=== PATIENT | male | born 1970 | race Caucasian/White ===

== ENCOUNTER 2021-02-24 17:23 | Emergency (ER) | payer MEDICAID ==
[~2021-02-24] VITALS: Ht 175.3 cm; Wt 97.0 kg
--- NOTE | 2021-02-24 17:44 | NUR ---
PATIENT WALKED BACK FROM TRIAGE WITH CHIEF C/O "HIGH BLOOD PRESSURE." PATIENT STATES HE FELT LIKE "WATER WAS RUNNING DOWN MY LEG AT WORK." PATIENT DENIES HISTORY OF HTN, DENIES SOB, CHEST PAIN. REPORTS NUMBNESS/TINGLING RIGHT LEG ALL THE WAY DOWN. PATIENT ALSO STATES HE HAS MULTIPLE BOILS THAT "KEEP COMING BACK AFTER I GOT BIT BY SPIDER." CONNECTED TO MONITOR, VSS, CLAUDETTEN, SPOUSE AT BEDSIDE, CALL LIGHT WITHIN REACH.
[2021-02-24 18:14] LABS: BASOPHILS % (AUTO) 1 % (0-1); EOSINOPHILS % (AUTO) 3 % (1-7); LYMPHOCYTES % (AUTO) 18 % (22-44); MEAN CORPUSCULAR HEMOGLOBIN 30.1 pg (27.5-34.5); MEAN CORPUSCULAR HGB CONC 34.4 g/dL (33.2-36.2); MEAN PLATELET VOLUME 6.8 fL (7.4-10.4); MONOCYTES % (AUTO) 8 % (2-9); NEUTROPHILS % (AUTO) 71 % (42-75); PLATELET COUNT 344 x10^3/uL (130-400); RED CELL DISTRIBUTION WIDTH 13.7 % (9.4-14.8)
[2021-02-24 18:23] LABS: ALANINE AMINOTRANSFERASE 44 U/L (12-78); ALBUMIN 3.3 g/dL (3.4-5.0); ANION GAP 4 mmol/L (5-15); CALCIUM 8.6 mg/dL (8.5-10.1); CHLORIDE 106 mmol/L (98-107); CREATININE 0.87 mg/dL (0.7-1.3)
--- NOTE | 2021-02-24 18:23 | NUR ---
PATIENT AMBULATED TO BATHROOM AND BACK TO [facility] WITH STEADY GAIT.
[2021-02-24 18:26] LABS: ALKALINE PHOSPHATASE 104 U/L (45-117); BILIRUBIN,TOTAL 0.3 mg/dL (0.2-1.0); TOTAL PROTEIN 7.3 g/dL (6.4-8.2)
--- NOTE | 2021-02-24 18:45 | NUR ---
REPORT RECEIVED FROM ALANA TESFAYE
--- NOTE | 2021-02-24 18:45 | NUR ---
REPORT TO MERA VIZCARRA FOR TRANSFER OF PATIENT CARE.
[2021-02-24 18:52] VITALS: BP 153/81
--- NOTE | 2021-02-24 19:06 | NUR ---
Patient given discharge instructions and they have confirmed that they understand the instructions. Patient ambulatory with steady gait. NAD, all questions answered appropriately, denies additional needs at this time. No personal belongings left in room after discharge.
== END 2021-02-24 19:10 | disposition home or self-care (01) ==
LOC: ED 19:01
DX: I10 Essential (primary) hypertension (principal); F17.200 Nicotine dependence, unspecified, uncomplicated
CPT/HCPCS: 36415; 71045; 80053; 85025; 93005; 99285

== ENCOUNTER 2021-02-25 17:27 | Inpatient (IN) | payer MEDICAID ==
[~2021-02-25] VITALS: Ht 175.3 cm; Wt 93.1 kg
[~2021-02-25 17:27] MED LIST: ETOMIDATE 20 MG/10 ML ONE; MIDAZOLAM 1 MG/ML, 5ML ONE; PROPOFOL 10 MG/ML, 100ML IV ONE; PROPOFOL 10 MG/ML, 20ML ONE; SUCCINYLCHOLINE 20 MG/ML, 10ML ONE; VECURONIUM 10 MG ONE
[2021-02-25] MEDS ORDERED: FAMOTIDINE 20 MG TABLET ONE (18:20)
[2021-02-25] MEDS ORDERED: FAMOTIDINE 20 MG TABLET PO ONE (18:30)
--- NOTE | 2021-02-25 18:50 | NUR ---
REPORT TO MERA MADRIGAL.
--- NOTE | 2021-02-25 18:54 | NUR ---
report from ora assumed care of pt at this time
--- NOTE | 2021-02-25 19:29 | NUR ---
PT FACIAL SWELLING NOTED TO BE INCREASING AT A FASTER RATE MOVED TO T 1 FOR POSSIBLE INTUBATION
--- NOTE | 2021-02-25 19:33 | NUR ---
report to julieth
[2021-02-25 19:46] LABS: BASOPHILS % (AUTO) 1 % (0-1); EOSINOPHILS % (AUTO) 3 % (1-7); LYMPHOCYTES % (AUTO) 15 % (22-44); MEAN PLATELET VOLUME 6.9 fL (7.4-10.4); MONOCYTES % (AUTO) 6 % (2-9); NEUTROPHILS % (AUTO) 76 % (42-75); PLATELET COUNT 340 x10^3/uL (130-400)
[2021-02-25 20:01] LABS: ALBUMIN 3.3 g/dL (3.4-5.0); ANION GAP 4 mmol/L (5-15); CALCIUM 8.3 mg/dL (8.5-10.1); CHLORIDE 107 mmol/L (98-107); CREATININE 0.66 mg/dL (0.7-1.3)
--- NOTE | 2021-02-25 20:05 | NUR ---
CONSENT SIGNED BY 2 RN FOR EMERGENT BLOOD INFUSION. FFP VERIFIED BY THIS RN AND EMPERATRIZ Grnat RN.
--- NOTE | 2021-02-25 20:17 | NUR ---
LATE ENTRY: PT MOVED TO TR01 FOR CLOSER OBSERVATION. PT INTUBATED @ 1945. 8.0 ET TUBE, 26 CM AT LIP. PT WAS GIVEN 20MG ETOMIDATE, 100MG PROPOFOL, 100MG SUCC.
[2021-02-25] MEDS ORDERED: GLUCAGON 1 MG IM PRN (20:30)
[2021-02-25] MEDS ORDERED: DEXTROSE 50%, 50ML SYRINGE IVPush PRN (20:30)
[2021-02-25] MEDS ORDERED: SODIUM CHLORIDE 0.9% 1,000 ML IV ONE (20:30)
[2021-02-25] MEDS ORDERED: PHARMACY MAY ADJ FOR RENAL FX MC SCH (20:30)
[2021-02-25] MEDS ORDERED: DEXTROSE 4 GM TAB.CHEW PO PRN (20:30)
--- NOTE | 2021-02-25 21:25 | NUR ---
CHAD HARDING (GIRLFRIEND) [phone]
[2021-02-25] MEDS ORDERED: LABETALOL 5MG/ML, 20ML IVPush PRN (21:30)
[2021-02-25] MEDS ORDERED: DIPHENHYDRAMINE 50 MG/ML, 1ML IVPush PRN (21:30)
[2021-02-25] MEDS ORDERED: FENTANYL PF 100 MCG/2ML ONE (21:33)
[2021-02-25] MEDS ORDERED: PROPOFOL 100 ML IV ONE (21:34)
[2021-02-25 21:48] VITALS: BP 124/76
[2021-02-25 22:05] LABS: HCT (SEDRATE) 42.8 % (39.2-51.8)
[2021-02-25 22:13] LABS: ALBUMIN 3.2 g/dL (3.4-5.0); BILIRUBIN, DIRECT 0.1 mg/dL (0.1-0.2); C-REACTIVE PROTEIN, QUANT 0.39 mg/dL (0.02-0.49)
[2021-02-25 22:15] LABS: BILIRUBIN,INDIRECT 0.4 mg/dL (0.0-2.0); BILIRUBIN,TOTAL 0.5 mg/dL (0.2-1.0)
[2021-02-25] MEDS: SODIUM CHLORIDE FLUSH 10ML SYR IVF SCH (22:39)
[2021-02-25] MEDS: methylPREDNISolone SOD SUCC 125 MG/2 ML IVPush SCH (23:12)
[2021-02-25 23:43] LABS: AMPHETAMINE SCREEN, URINE Negative (Negative); BARBITURATE SCREEN, URINE Negative (Negative); BENZODIAZEPINE SCREEN, URINE Negative (Negative); CANNABINOID SCREEN, URINE Positive (Negative); COCAINE SCREEN, URINE Negative (Negative)
[2021-02-25 23:44] LABS: METHADONE SCREEN, URINE Negative (Negative); OPIATE SCREEN, URINE Negative (Negative)
[2021-02-26] MEDS: PROPOFOL 100 ML IV PRN ×7 (01:05→23:57)
[2021-02-26] MEDS: FENTANYL PF 1,000 MCG in SODIUM CHLORIDE 0.9% 80 ML IV PRN ×3 (03:57→23:13)
[2021-02-26 04:57] LABS: BASOPHILS % (AUTO) 0 % (0-1); EOSINOPHILS % (AUTO) 0 % (1-7); LYMPHOCYTES % (AUTO) 4 % (22-44); MEAN CORPUSCULAR HEMOGLOBIN 29.6 pg (27.5-34.5); MEAN CORPUSCULAR HGB CONC 33.7 g/dL (33.2-36.2); MEAN PLATELET VOLUME 6.8 fL (7.4-10.4); MONOCYTES % (AUTO) 1 % (2-9); NEUTROPHILS % (AUTO) 95 % (42-75); PLATELET COUNT 332 x10^3/uL (130-400); RED BLOOD COUNT 5.25 x10^6/uL (4.38-5.82)
[2021-02-26] MEDS: LIDOCAINE-MPF 1%, 2ML ENDO PRN ×2 (05:05→18:47)
[2021-02-26 05:06] LABS: ANION GAP 5 mmol/L (5-15); CALCIUM 8.2 mg/dL (8.5-10.1); CHLORIDE 107 mmol/L (98-107)
[2021-02-26 05:09] LABS: CREATININE 0.57 mg/dL (0.7-1.3)
[2021-02-26] MEDS: methylPREDNISolone SOD SUCC 125 MG/2 ML IVPush SCH ×4 (05:29→23:13)
[2021-02-26] MEDS: ENOXAPARIN 40 MG/0.4 ML SQ SCH (05:30)
[2021-02-26] MEDS: FAMOTIDINE 20 MG/2 ML IVPush SCH ×2 (09:17→21:31)
[2021-02-26] MEDS: SODIUM CHLORIDE FLUSH 10ML SYR IVF SCH ×2 (09:18→21:31)
[2021-02-26 09:24] LABS: MICROSCOPIC NOT IND
[2021-02-26] MEDS ORDERED: THIAMINE 200 MG in SODIUM CHLORIDE 0.9% 50 ML IV ONE (11:30)
--- NOTE | 2021-02-26 12:55 | NUR ---
Promote TF: 60 ml/hr ON propofol, 70 ml/hr OFF propofol Addendum: 02/26/21 at [address] Amended: Links added.
[2021-02-26] MEDS: NICOTINE 14MG/24 HR PATCH.TD24 TD SCH (13:22)
[2021-02-27] MEDS: PROPOFOL 100 ML IV PRN ×6 (02:56→21:56)
[2021-02-27] MEDS: ACETAMINOPHEN 500 MG TABLET PO SCH ×5 (04:34→19:39)
[2021-02-27 04:39] LABS: MEAN CORPUSCULAR HEMOGLOBIN 29.6 pg (27.5-34.5); MEAN CORPUSCULAR HGB CONC 33.8 g/dL (33.2-36.2); MEAN PLATELET VOLUME 7.1 fL (7.4-10.4); PLATELET COUNT 352 x10^3/uL (130-400); RED BLOOD COUNT 4.88 x10^6/uL (4.38-5.82); RED CELL DISTRIBUTION WIDTH 13.8 % (9.4-14.8)
[2021-02-27 04:47] LABS: ANION GAP 5 mmol/L (5-15); CALCIUM 8.2 mg/dL (8.5-10.1); CHLORIDE 105 mmol/L (98-107)
[2021-02-27 04:48] LABS: CREATININE 0.89 mg/dL (0.7-1.3)
[2021-02-27] MEDS: ENOXAPARIN 40 MG/0.4 ML SQ SCH (05:25)
[2021-02-27] MEDS: methylPREDNISolone SOD SUCC 125 MG/2 ML IVPush SCH ×4 (05:25→23:04)
[2021-02-27 05:46] LABS: BAND#(MANUAL) 0.49 x10^3/uL; BANDS%(MANUAL) 2 % (0-7); LYMPH#(MANUAL) 0.49 x10^3/uL (1-3.4); LYMPHS% (MANUAL) 2 % (22-44); MONOS#(MANUAL) 0.49 x10^3/uL (0.3-2.7); MONOS% (MANUAL) 2 % (2-9); SEG#(MANUAL) 23.22 x10^3/uL (1.8-6.8); SEGS% (MANUAL) 94 % (42-75)
[2021-02-27 05:47] LABS: <RBC MORPHOLOGY> NORMAL
[2021-02-27 05:48] LABS: <PLATELET ESTIMATE> ADEQUATE; <PLT MORPHOLOGY> NORMAL PLT MORPH
[2021-02-27] MEDS: FENTANYL PF 1,000 MCG in SODIUM CHLORIDE 0.9% 80 ML IV PRN ×3 (07:45→22:18)
[2021-02-27] MEDS: SODIUM CHLORIDE FLUSH 10ML SYR IVF SCH ×2 (08:31→19:40)
[2021-02-27] MEDS: FAMOTIDINE 20 MG/2 ML IVPush SCH ×2 (08:31→19:39)
[2021-02-27] MEDS: NICOTINE 14MG/24 HR PATCH.TD24 TD SCH (08:54)
[2021-02-27 10:43] LABS: ALANINE AMINOTRANSFERASE 29 U/L (12-78)
[2021-02-27 10:45] LABS: ALKALINE PHOSPHATASE 85 U/L (45-117); BILIRUBIN, DIRECT < 0.1 mg/dL (0.1-0.2); BILIRUBIN,TOTAL 0.3 mg/dL (0.2-1.0); TOTAL PROTEIN 6.8 g/dL (6.4-8.2)
[2021-02-27] MEDS: LACTATED RINGERS 1,000 ML IV SCH ×2 (11:17→23:05)
[2021-02-27 11:23] LABS: BILIRUBIN,INDIRECT < 0.2 mg/dL (0.0-2.0)
[2021-02-27] MEDS: MEROPENEM 1 GM in SODIUM CHLORIDE 0.9% 100 ML IV SCH (18:05)
[2021-02-28] MEDS: ACETAMINOPHEN 500 MG TABLET PO SCH ×2 (00:27→04:14)
[2021-02-28] MEDS: MEROPENEM 1 GM in SODIUM CHLORIDE 0.9% 100 ML IV SCH ×2 (00:28→09:14)
[2021-02-28] MEDS: FENTANYL PF 1,000 MCG in SODIUM CHLORIDE 0.9% 80 ML IV PRN (04:16)
[2021-02-28] MEDS: methylPREDNISolone SOD SUCC 125 MG/2 ML IVPush SCH ×4 (04:16→23:00)
[2021-02-28 04:42] LABS: BASOPHILS % (AUTO) 0 % (0-1); EOSINOPHILS % (AUTO) 0 % (1-7); LYMPHOCYTES % (AUTO) 3 % (22-44); MEAN CORPUSCULAR HEMOGLOBIN 29.4 pg (27.5-34.5); MEAN CORPUSCULAR HGB CONC 33.2 g/dL (33.2-36.2); MONOCYTES % (AUTO) 3 % (2-9); NEUTROPHILS % (AUTO) 94 % (42-75); PLATELET COUNT 308 x10^3/uL (130-400); RED BLOOD COUNT 4.68 x10^6/uL (4.38-5.82); RED CELL DISTRIBUTION WIDTH 13.9 % (9.4-14.8)
[2021-02-28 04:46] LABS: ANION GAP 4 mmol/L (5-15); CALCIUM 8.2 mg/dL (8.5-10.1); CHLORIDE 105 mmol/L (98-107); TRIGLYCERIDES 204 mg/dL (50-200)
[2021-02-28] MEDS: PROPOFOL 100 ML IV PRN (05:15)
[2021-02-28] MEDS: ENOXAPARIN 40 MG/0.4 ML SQ SCH (06:09)
[2021-02-28] MEDS: FAMOTIDINE 20 MG/2 ML IVPush SCH ×2 (13:29→20:17)
[2021-02-28] MEDS: SODIUM CHLORIDE FLUSH 10ML SYR IVF SCH ×2 (13:29→20:18)
[2021-02-28] MEDS: NICOTINE 14MG/24 HR PATCH.TD24 TD SCH (13:30)
[2021-02-28] MEDS: LACTATED RINGERS 1,000 ML IV SCH (13:31)
[2021-02-28] MEDS: LINEZOLID 600 MG TABLET PO SCH (20:17)
[2021-03-01 04:42] LABS: BASOPHILS % (AUTO) 0 % (0-1); EOSINOPHILS % (AUTO) 0 % (1-7); LYMPHOCYTES % (AUTO) 4 % (22-44); MEAN CORPUSCULAR HEMOGLOBIN 29.8 pg (27.5-34.5); MEAN CORPUSCULAR HGB CONC 33.4 g/dL (33.2-36.2); MEAN PLATELET VOLUME 6.9 fL (7.4-10.4); MONOCYTES % (AUTO) 4 % (2-9); NEUTROPHILS % (AUTO) 92 % (42-75); PLATELET COUNT 264 x10^3/uL (130-400); RED BLOOD COUNT 4.61 x10^6/uL (4.38-5.82)
[2021-03-01 04:50] LABS: ANION GAP 3 mmol/L (5-15); CALCIUM 8.2 mg/dL (8.5-10.1); CHLORIDE 106 mmol/L (98-107); CREATININE 0.59 mg/dL (0.7-1.3)
[2021-03-01] MEDS: methylPREDNISolone SOD SUCC 125 MG/2 ML IVPush SCH ×2 (05:47→10:49)
[2021-03-01] MEDS: ENOXAPARIN 40 MG/0.4 ML SQ SCH (06:00)
[2021-03-01] MEDS: SODIUM CHLORIDE FLUSH 10ML SYR IVF SCH (08:26)
[2021-03-01] MEDS: LINEZOLID 600 MG TABLET PO SCH (08:27)
[2021-03-01] MEDS: FAMOTIDINE 20 MG/2 ML IVPush SCH (08:27)
[2021-03-01] MEDS: NICOTINE 14MG/24 HR PATCH.TD24 TD SCH (10:51)
[2021-03-01] MEDS ORDERED: CARV6.2512 PO (11:55)
[2021-03-01] MEDS ORDERED: PRED50TA PO (11:55)
[2021-03-01] MEDS ORDERED: HYDR-3341 PO (11:55)
[2021-03-01] MEDS ORDERED: FAMOTIDINE 20 MG TABLET PO SCH (21:00)
== END 2021-03-01 14:20 | disposition home or self-care (01) | DRG 811 ==
LOC: ED 20:15 → EDIP 20:21 → ED 20:35 → CCU 22:20
PROVIDERS: ADMIT Family Medicine; ATTEND Internal Medicine
PROC: 0BH17EZ Insertion of Endotracheal Airway into Trachea, Via Natural or Artificial Opening (ICD-10-PCS; principal; 2021-02-25)
PROC: 5A1945Z Respiratory Ventilation, 24-96 Consecutive Hours (ICD-10-PCS; 2021-02-25)
DX: T78.3XXA Angioneurotic edema, initial encounter (principal); J96.02 Acute respiratory failure with hypercapnia; E87.1 Hypo-osmolality and hyponatremia; E83.51 Hypocalcemia; E88.09 Other disorders of plasma-protein metabolism, not elsewhere classified; K56.7 Ileus, unspecified; I10 Essential (primary) hypertension; E66.9 Obesity, unspecified; Z68.31 Body mass index [BMI] 31.0-31.9, adult; F17.200 Nicotine dependence, unspecified, uncomplicated; Z72.89 Other problems related to lifestyle; F12.90 Cannabis use, unspecified, uncomplicated; D72.829 Elevated white blood cell count, unspecified; R50.9 Fever, unspecified; R65.10 Systemic inflammatory response syndrome (SIRS) of non-infectious origin without acute organ dysfunction
CPT/HCPCS: 31500; 36415; 36600; 71045; 74018; 74230; 80048; 80076; 80307; 81003; 82040; 82803; 83690; 83735; 84145; 84478; 85025; 85651; 86140; 86160; 86850; 86900; 87040; 87070; 87077; 87081; 87147; 87186; 87205; 93970; 94002; 94003; G0378; J1650; J2185; J2250; J2704; J3010; J3411; J0330; J2930; J7030; J7120; J7512; P9017; Q0177

== ENCOUNTER 2021-03-02 13:41 | Inpatient (IN) | payer MEDICAID ==
[~2021-03-02] VITALS: Ht 175.3 cm; Wt 95.6 kg
[~2021-03-02 13:41] MED LIST changes: +CARV6.2512 PO; -ETOMIDATE 20 MG/10 ML ONE; +HYDR-3341 PO; -MIDAZOLAM 1 MG/ML, 5ML ONE; +PRED50TA PO; -PROPOFOL 10 MG/ML, 100ML IV ONE; -PROPOFOL 10 MG/ML, 20ML ONE; -SUCCINYLCHOLINE 20 MG/ML, 10ML ONE; -VECURONIUM 10 MG ONE
--- NOTE | 2021-03-02 14:33 | NUR ---
PT STATES HE RECEIVED A CALL FROM [facility] FOR ABNORMAL BLOOD CULTURES, PT REPORTS HE WAS DISCHARGED YESTERDAY.
[2021-03-02] MEDS ORDERED: VANCOMYCIN PER PHARMACY MC ONE (15:00)
[2021-03-02] MEDS ORDERED: SODIUM CHLORIDE FLUSH 10ML SYR IVF ONE (15:00)
[2021-03-02] MEDS ORDERED: VANCOMYCIN 2,000 MG in SODIUM CHLORIDE 0.9% 500 ML IV ONE (15:00)
--- NOTE | 2021-03-02 15:29 | NUR ---
VANCO INFUSING AFTER BLOOD CULTURES. VSS.
[2021-03-02 15:38] LABS: BASOPHILS % (AUTO) 0 % (0-1); EOSINOPHILS % (AUTO) 0 % (1-7); LYMPHOCYTES % (AUTO) 14 % (22-44); MEAN CORPUSCULAR HEMOGLOBIN 29.5 pg (27.5-34.5); MEAN CORPUSCULAR HGB CONC 33.5 g/dL (33.2-36.2); MONOCYTES % (AUTO) 10 % (2-9); NEUTROPHILS % (AUTO) 75 % (42-75); PLATELET COUNT 356 x10^3/uL (130-400); RED BLOOD COUNT 5.26 x10^6/uL (4.38-5.82); RED CELL DISTRIBUTION WIDTH 14.1 % (9.4-14.8)
[2021-03-02 15:40] LABS: ALANINE AMINOTRANSFERASE 58 U/L (12-78); ALBUMIN 3.1 g/dL (3.4-5.0); CALCIUM 8.3 mg/dL (8.5-10.1); CREATININE 0.54 mg/dL (0.7-1.3)
[2021-03-02 15:42] LABS: ALKALINE PHOSPHATASE 89 U/L (45-117); BILIRUBIN,TOTAL 0.5 mg/dL (0.2-1.0); TOTAL PROTEIN 6.9 g/dL (6.4-8.2)
[2021-03-02 15:54] LABS: ANION GAP 4 mmol/L (5-15); CHLORIDE 107 mmol/L (98-107)
--- NOTE | 2021-03-02 16:28 | NUR ---
HOSPITALIST AT BEDSIDE.
[2021-03-02] MEDS ORDERED: SODIUM CHLORIDE FLUSH 10ML SYR IVF PRN (16:30)
--- NOTE | 2021-03-02 16:44 | NUR ---
REPORT TO JACK TESFAYE.
[2021-03-02] MEDS ORDERED: VANCOMYCIN PER PHARMACY MC PRN (17:00)
[2021-03-02] MEDS: ENOXAPARIN 40 MG/0.4 ML SQ SCH (17:00)
[2021-03-02 17:24] VITALS: BP 183/79
[2021-03-02] MEDS ORDERED: LACTATED RINGERS 1,000 ML IVBOLUS ONE (17:30)
[2021-03-02] MEDS ORDERED: PHARMACOKINETIC CONSULTATION MC ONE (17:30)
[2021-03-02] MEDS ORDERED: LABETALOL 5MG/ML, 20ML IVPush PRN (17:30)
[2021-03-02] MEDS ORDERED: PHARMACOKINETIC MONITORING MC PRN (17:30)
[2021-03-02 18:12] VITALS: BP 150/88
[2021-03-02] MEDS: CARVEDILOL 6.25 MG TABLET PO SCH (20:15)
[2021-03-02 20:16] VITALS: BP 144/84
[2021-03-03] MEDS: LACTATED RINGERS 1,000 ML IV SCH ×2 (01:20→13:22)
[2021-03-03 02:30] VITALS: BP 132/85
[2021-03-03] MEDS: VANCOMYCIN 1,600 MG in SODIUM CHLORIDE 0.9% 250 ML IV SCH ×2 (03:32→16:29)
[2021-03-03 05:32] LABS: BASOPHILS % (AUTO) 0 % (0-1); EOSINOPHILS % (AUTO) 2 % (1-7); LYMPHOCYTES % (AUTO) 24 % (22-44); MEAN CORPUSCULAR HEMOGLOBIN 29.8 pg (27.5-34.5); MEAN CORPUSCULAR HGB CONC 33.9 g/dL (33.2-36.2); MEAN PLATELET VOLUME 6.9 fL (7.4-10.4); MONOCYTES % (AUTO) 7 % (2-9); NEUTROPHILS % (AUTO) 67 % (42-75); PLATELET COUNT 292 x10^3/uL (130-400); RED BLOOD COUNT 4.99 x10^6/uL (4.38-5.82); RED CELL DISTRIBUTION WIDTH 14.3 % (9.4-14.8)
[2021-03-03] MEDS: NICOTINE 14MG/24 HR PATCH.TD24 TD SCH (05:44)
[2021-03-03 05:47] LABS: ANION GAP 4 mmol/L (5-15); CALCIUM 7.9 mg/dL (8.5-10.1); CHLORIDE 106 mmol/L (98-107)
[2021-03-03 05:48] LABS: CREATININE 0.54 mg/dL (0.7-1.3)
[2021-03-03] MEDS: predniSONE 50MG TABLET PO SCH (08:52)
[2021-03-03] MEDS: CARVEDILOL 6.25 MG TABLET PO SCH ×2 (08:53→20:28)
[2021-03-03 12:14] VITALS: BP 147/84
[2021-03-03] MEDS: ENOXAPARIN 40 MG/0.4 ML SQ SCH (16:29)
[2021-03-03 20:07] VITALS: BP 124/89
[2021-03-03] MEDS ORDERED: OXYcodone IR 5MG TABLET PO PRN (21:00)
[2021-03-03] MEDS: MELATONIN 5 MG TABLET PO PRN (22:11)
[2021-03-04 01:16] VITALS: BP 126/73
[2021-03-04 03:18] LABS: ANION GAP 4 mmol/L (5-15); CALCIUM 8.5 mg/dL (8.5-10.1); CHLORIDE 105 mmol/L (98-107); CREATININE 0.67 mg/dL (0.7-1.3)
[2021-03-04 03:22] LABS: BASOPHILS % (AUTO) 0 % (0-1); EOSINOPHILS % (AUTO) 1 % (1-7); LYMPHOCYTES % (AUTO) 19 % (22-44); MEAN CORPUSCULAR HEMOGLOBIN 29.4 pg (27.5-34.5); MEAN CORPUSCULAR HGB CONC 33.5 g/dL (33.2-36.2); MONOCYTES % (AUTO) 7 % (2-9); NEUTROPHILS % (AUTO) 73 % (42-75); PLATELET COUNT 305 x10^3/uL (130-400); RED BLOOD COUNT 5.03 x10^6/uL (4.38-5.82); RED CELL DISTRIBUTION WIDTH 13.7 % (9.4-14.8)
[2021-03-04] MEDS: VANCOMYCIN 1,600 MG in SODIUM CHLORIDE 0.9% 250 ML IV SCH ×2 (04:15→16:24)
[2021-03-04] MEDS: LACTATED RINGERS 1,000 ML IV SCH (04:16)
[2021-03-04] MEDS: NICOTINE 14MG/24 HR PATCH.TD24 TD SCH (05:43)
[2021-03-04 06:49] VITALS: BP 143/77
[2021-03-04] MEDS: predniSONE 50MG TABLET PO SCH (09:31)
[2021-03-04] MEDS: CARVEDILOL 6.25 MG TABLET PO SCH ×2 (09:32→21:55)
[2021-03-04 12:29] VITALS: BP 155/84
[2021-03-04] MEDS: ENOXAPARIN 40 MG/0.4 ML SQ SCH (16:24)
[2021-03-04 19:43] VITALS: BP 152/86
[2021-03-04] MEDS: MELATONIN 5 MG TABLET PO PRN (21:55)
[2021-03-05 00:35] VITALS: BP 146/77
[2021-03-05] MEDS: VANCOMYCIN 1,600 MG in SODIUM CHLORIDE 0.9% 250 ML IV SCH (05:34)
[2021-03-05] MEDS: NICOTINE 14MG/24 HR PATCH.TD24 TD SCH (05:34)
[2021-03-05 05:46] LABS: BASOPHILS % (AUTO) 0 % (0-1); EOSINOPHILS % (AUTO) 2 % (1-7); LYMPHOCYTES % (AUTO) 18 % (22-44); MEAN CORPUSCULAR HEMOGLOBIN 29.4 pg (27.5-34.5); MEAN CORPUSCULAR HGB CONC 33.7 g/dL (33.2-36.2); MEAN PLATELET VOLUME 6.8 fL (7.4-10.4); MONOCYTES % (AUTO) 5 % (2-9); NEUTROPHILS % (AUTO) 75 % (42-75); PLATELET COUNT 288 x10^3/uL (130-400); RED BLOOD COUNT 5.05 x10^6/uL (4.38-5.82); RED CELL DISTRIBUTION WIDTH 13.8 % (9.4-14.8)
[2021-03-05 05:54] LABS: ANION GAP 4 mmol/L (5-15); CALCIUM 8.8 mg/dL (8.5-10.1); CHLORIDE 103 mmol/L (98-107); CREATININE 0.54 mg/dL (0.7-1.3)
[2021-03-05 05:56] LABS: VANCOMYCIN,TROUGH 11.2 mcg/mL (5.0-10.0)
[2021-03-05 06:58] VITALS: BP 131/81
[2021-03-05] MEDS: CARVEDILOL 6.25 MG TABLET PO SCH ×2 (09:41→21:00)
[2021-03-05] MEDS: predniSONE 50MG TABLET PO SCH (09:41)
[2021-03-05 13:40] VITALS: BP 120/73
[2021-03-05] MEDS: VANCOMYCIN 1,400 MG in SODIUM CHLORIDE 0.9% 250 ML IV SCH ×2 (14:01→21:01)
[2021-03-05] MEDS: ENOXAPARIN 40 MG/0.4 ML SQ SCH (17:25)
[2021-03-05 18:47] VITALS: BP 130/79
[2021-03-05] MEDS: MELATONIN 5 MG TABLET PO PRN (21:00)
[2021-03-06 02:34] VITALS: BP 139/89
[2021-03-06 05:09] LABS: BASOPHILS % (AUTO) 0 % (0-1); EOSINOPHILS % (AUTO) 1 % (1-7); LYMPHOCYTES % (AUTO) 16 % (22-44); MEAN CORPUSCULAR HEMOGLOBIN 29.2 pg (27.5-34.5); MEAN CORPUSCULAR HGB CONC 33.5 g/dL (33.2-36.2); MEAN PLATELET VOLUME 6.7 fL (7.4-10.4); MONOCYTES % (AUTO) 7 % (2-9); NEUTROPHILS % (AUTO) 76 % (42-75); PLATELET COUNT 283 x10^3/uL (130-400); RED BLOOD COUNT 4.94 x10^6/uL (4.38-5.82); RED CELL DISTRIBUTION WIDTH 13.6 % (9.4-14.8)
[2021-03-06] MEDS: VANCOMYCIN 1,400 MG in SODIUM CHLORIDE 0.9% 250 ML IV SCH (05:16)
[2021-03-06] MEDS: NICOTINE 14MG/24 HR PATCH.TD24 TD SCH (05:17)
[2021-03-06 07:54] VITALS: BP 124/78
[2021-03-06] MEDS: CARVEDILOL 6.25 MG TABLET PO SCH (08:49)
[2021-03-06] MEDS ORDERED: LINEZOLID 600 MG TABLET PO SCH (10:00)
[2021-03-06] MEDS ORDERED: MUPIROCIN CRM 2%, 15GM TP SCH (10:30)
[2021-03-06] MEDS ORDERED: LINE600T12 PO (11:22)
[2021-03-06] MEDS ORDERED: MUPIROCIN OINT 2%, 15GM TP SCH (21:00)
== END 2021-03-06 12:55 | disposition home or self-care (01) | DRG 720 ==
LOC: ED 14:07 → SUATTDRO 16:18 → EDIP 16:21 → 3N 17:03
PROVIDERS: ADMIT Emergency Medicine; ATTEND Emergency Medicine
DX: A41.02 Sepsis due to Methicillin resistant Staphylococcus aureus (principal); E66.9 Obesity, unspecified; L03.90 Cellulitis, unspecified; Z68.31 Body mass index [BMI] 31.0-31.9, adult; Z71.3 Dietary counseling and surveillance; F12.90 Cannabis use, unspecified, uncomplicated; I10 Essential (primary) hypertension; L73.9 Follicular disorder, unspecified; T38.0X5A Adverse effect of glucocorticoids and synthetic analogues, initial encounter; T46.4X5A Adverse effect of angiotensin-converting-enzyme inhibitors, initial encounter; T78.3XXA Angioneurotic edema, initial encounter; Z86.14 Personal history of Methicillin resistant Staphylococcus aureus infection; Z87.891 Personal history of nicotine dependence; Z88.8 Allergy status to other drugs, medicaments and biological substances; Y92.89 Other specified places as the place of occurrence of the external cause
CPT/HCPCS: 36415; 80048; 80053; 80202; 83605; 83735; 85025; 87040; 93306; 93356; 99285; G0378; J1650; J3370; J7040; J7050; J7120; J7512

== ENCOUNTER 2021-03-14 17:58 | Emergency (ER) | payer MEDICAID ==
[~2021-03-14] VITALS: Ht 175.3 cm; Wt 92.2 kg
[~2021-03-14 17:58] MED LIST changes: +LINE600T12 PO
[2021-03-14] MEDS ORDERED: DEXAMETHASONE 4 MG TABLET PO ONE (19:00)
[2021-03-14] MEDS ORDERED: ACETAMINOPHEN 500 MG TABLET PO ONE (19:00)
[2021-03-14] MEDS ORDERED: ACETAMINOPHEN 500 MG TABLET ONE (20:03)
[2021-03-14] MEDS ORDERED: DEXAMETHASONE 4 MG TABLET ONE (20:03)
[2021-03-14 20:08] VITALS: BP 132/86
== END 2021-03-14 20:57 | disposition home or self-care (01) ==
LOC: ED 20:40
DX: U07.1 COVID-19 (principal); J06.9 Acute upper respiratory infection, unspecified; R06.02 Shortness of breath; R94.31 Abnormal electrocardiogram [ECG] [EKG]; I10 Essential (primary) hypertension
CPT/HCPCS: 71045; 93005; 99285; U0003; U0005

== ENCOUNTER 2021-03-22 12:09 | Emergency (ER) | payer MEDICAID ==
[~2021-03-22] VITALS: Ht 175.3 cm; Wt 90.0 kg
--- NOTE | 2021-03-22 12:17 | NUR ---
PT BIB EMS FOR CP RIGHT SIDE COUGH, SOB, COVID +. RECEIVED 1 DOSE OF MODERNA ON 03/07. PAIN WORSE W ACTIVITY AND COUGHNG. HX OF HTN, CARD MONITOR IN PLACE.
--- NOTE | 2021-03-22 13:10 | NUR ---
RECEIVED REPORT FROM MERA VIDAL. ASSUMING CARE AT THIS TIME. PT RESTING COMFORTABLY ON GURNEY. RESP EVEN AND UNLABORED. AWAITING ORDERS.
--- NOTE | 2021-03-22 13:58 | NUR ---
ERMD AT BEDSIDE FOR ASSESSMENT.
[2021-03-22] MEDS ORDERED: DEXAMETHASONE 4 MG/ML, 5ML ONE (14:13)
[2021-03-22] MEDS ORDERED: KETOROLAC 30 MG/1 ML ONE (14:13)
--- NOTE | 2021-03-22 14:20 | NUR ---
MEDS ADMIN PER OCT.
[2021-03-22] MEDS ORDERED: KETOROLAC 30 MG/1 ML IVPush ONE (14:30)
[2021-03-22] MEDS ORDERED: DEXAMETHASONE 4 MG/ML, 1ML IVPush ONE (14:30)
--- NOTE | 2021-03-22 15:03 | NUR ---
RECEIVED REPORT FROM CHRISTOPHER TESFAYE, TRANSFER OF CARE.
--- NOTE | 2021-03-22 15:07 | NUR ---
PT RESTING ON GURNEY RESP EVEN AND UNLABORED NADN, VSS NO NEEDS AT THIS TIME.
--- NOTE | 2021-03-22 15:14 | NUR ---
PT ON RESP ISO
--- NOTE | 2021-03-22 15:19 | NUR ---
MARKET RISK SPECIALIST AT BEDSIDE.
[2021-03-22 16:59] VITALS: BP 135/92
== END 2021-03-22 17:40 | disposition home or self-care (01) ==
LOC: ED 12:41
DX: M94.0 Chondrocostal junction syndrome [Tietze] (principal); M54.6 Pain in thoracic spine; I10 Essential (primary) hypertension
CPT/HCPCS: 71045; 96374; 96375; 99284; J1100; J1885

== ENCOUNTER 2021-04-09 13:06 | Emergency (ER) | payer MEDICAID ==
[~2021-04-09] VITALS: Ht 175.3 cm; Wt 94.0 kg
[2021-04-09 15:00] VITALS: BP 155/83
--- NOTE | 2021-04-09 15:30 | NUR ---
CHRISX1
--- NOTE | 2021-04-09 16:33 | NUR ---
Patient given discharge instructions and they have confirmed that they understand the instructions. Patient ambulatory with steady gait.
== END 2021-04-09 16:35 | disposition home or self-care (01) ==
LOC: ED 16:00
DX: I10 Essential (primary) hypertension (principal); Z76.0 Encounter for issue of repeat prescription
CPT/HCPCS: 99281